=== PATIENT | female | born 1960 | race Two or more races ===

== ENCOUNTER 2017-11-10 12:58 | Emergency (ER) | payer BC ==
[2017-11-10 13:24] VITALS: BP 155/109; PULSE 102; RESP 16; TEMP 98.6; O2SAT 97
--- NOTE | 2017-11-10 14:02 | EDPHY ---
H & P Time Seen by Provider: 11/10/17 13:05 HPI/ROS: CHIEF COMPLAINT: White spots in mouth History by patient HISTORY OF PRESENT ILLNESS: 57-year-old woman with a history of "burning and mouth disease "complains of 2 days of a burning sensation in her mouth and now white spots on her gums and oral mucosa. Patient states that a few years ago she was diagnosed with burning mouth syndrome because she was having a salty taste in her saliva. At that time she did not have any burning sensation. 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 She continues to have the persistent salty taste of her saliva but then developed this pain in these white plaques today. She says no fever, chills, nausea or vomiting. She is on Norvasc for her hypertension but takes no other medications except an occasional Ativan for her Meniere's disease. Patient states she had a regular physical checkup with a rate doctor including blood work not too long ago and every thing was fine. REVIEW OF SYSTEMS: As in HPI, and all other systems reviewed and are negative Smoking Status: Former smoker Physical Exam: General Appearance: Alert and no distress. Head: normocephalic, atraumatic, no sinus tenderness Eyes: Pupils equal and round no injection. OP: mucus membranes moist, positive removal white plaques throughout oral mucosa and posterior pharynx, no tonsillar enlargement Neck: no meningismus, no cervical nodes, no submandibular nodes. Skin: No rashes or lesions. Constitutional: Initial Vital Signs Temperature (C) 37.0 C 11/10/17 13:18 Heart Rate 102 H 11/10/17 13:18 Respiratory Rate 16 11/10/17 13:18 Blood Pressure 155/109 H 11/10/17 13:18 O2 Sat (%) 97 11/10/17 13:18 O2 Delivery Mode Room Air Allergies/Adverse Reactions: Sulfa (Sulfonamide Antibiotics) Allergy (Verified 11/10/17 13:15) Home Medications: Medication Instructions Recorded LORAZEPAM PRN 04/10/16 Amitriptyline HCl [Elavil 10 mg 20 mg PO DAILY 11/10/17 (*)] Amlodipine Besylate 5 mg 11/10/17 Nystatin Susp [Mycostatin Oral 5 ml MM QID #1 btl 11/10/17 Liquid] MDM/Departure - [facility] ED Course/Re-evaluation: 57-year-old woman with hypertension and "burning mouth syndrome "presents complaining of sore lesions and white plaques in her mouth. Exam is consistent with oral thrush. Patient is not immunocompromised I suspect this is likely to her underlying burning mouth syndrome. Will treat her with topical nystatin and I am recommending follow up closely with her dentist and Ear Nose Throat specialist. Patient understands and is agreeable to this plan. - Depart Disposition: Home, Routine, Self-Care Clinical Impression: Oral thrush Condition: Good Instructions: Oral Candidiasis (ED) Additional Instructions: You were seen by Dr. Zohra Bray today. Uses the nystatin medicine as directed. Please follow up with the Ear Nose Throat specialist and/or your dentist for re-evaluation, particularly if your lesions do not resolve. Return for any worsening or new concerns. Prescriptions: Nystatin Susp [Mycostatin Oral Liquid] 5 ml MM QID #1 btl Referrals: NONE *PRIMARY CARE P,. [Primary Care Provider] - As per Instructions
== END 2017-11-10 14:07 | disposition home or self-care (01) ==
LOC: CED 12:58
DX: B37.0 Candidal stomatitis (principal); Z87.891 Personal history of nicotine dependence